=== PATIENT | female | born 2000 | race African-American/Black ===

== ENCOUNTER 2023-01-25 21:20 | Emergency (ER) | payer OTHER ==
[~2023-01-25] VITALS: Ht 162.6 cm; Wt 64.0 kg
[2023-01-25 21:38] VITALS: BP 110/71
[2023-01-25] MEDS ORDERED: IBUPROFEN 600 MG TABLET PO ONE (23:30)
[2023-01-25] MEDS ORDERED: BACITRACIN 0.9 GM PACKET OINTMENT TP ONE (23:30)
[2023-01-25] MEDS ORDERED: ACETAMINOPHEN 500 MG TABLET PO ONE (23:30)
== END 2023-01-26 03:36 | disposition home or self-care (01) ==
LOC: EMS 21:22
DX: S00.83XA Contusion of other part of head, initial encounter (principal); F17.210 Nicotine dependence, cigarettes, uncomplicated; F12.90 Cannabis use, unspecified, uncomplicated; Y08.89XA Assault by other specified means, initial encounter; Y93.89 Activity, other specified; Y92.89 Other specified places as the place of occurrence of the external cause; Y99.8 Other external cause status
CPT/HCPCS: 70450; 70486; 71250; 72125; 84703; 99284